=== PATIENT | male | born 1980 | race Two or more races ===

== ENCOUNTER 2017-02-20 11:49 | Day surgery (SDC) | payer BC ==
[~2017-02-20 11:49] MED LIST: NO CURRENT MEDS
== END 2017-02-20 19:55 ==
LOC: SRG 11:49 → SHSA 11:50 → ORW 14:01 → PACU 17:22 → SHSA 18:10
PROC: 0YU54JZ Supplement Right Inguinal Region with Synthetic Substitute, Percutaneous Endoscopic Approach (ICD-10-PCS; principal; 2017-02-20)
PROC: 8E0W4CZ Robotic Assisted Procedure of Trunk Region, Percutaneous Endoscopic Approach (ICD-10-PCS; 2017-02-20)
DX: K40.90 Unilateral inguinal hernia, without obstruction or gangrene, not specified as recurrent (principal)
CPT/HCPCS: C1781; J0690; J1170; J7121